=== PATIENT | male | born 1990 | race Caucasian/White ===

== ENCOUNTER 2016-07-02 00:38 | Emergency (ER) | payer OTHER ==
[~2016-07-02] VITALS: Ht 182.9 cm; Wt 77.1 kg
[~2016-07-02 00:38] MED LIST: METRONIDAZOLE500 MG PO
[2016-07-02] MEDS ORDERED: BACTROBAN2% TP (00:58)
--- NOTE | 2016-07-02 01:05 | Emergency Room Report ---
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 N Clinical Suspician of Infection? Y Mental Status: 1 - Regular (Normal Baseline) Sepsis Risk:Possible Sepsis Risk Have you (or family members/close friends) recently traveled outside the [place]? N If Yes, where/when: Have you had exposure to infectious disease within the past month? N TB? Other? Specify: Source patient, RN notes reviewed, family, old records Exam Limitations no limitations Comment infection lt lower leg with reddness and swelling and was at [facility] and did not get his abx Cardiac Chest Pain Chest pain indicative of cardiac No Timing/Duration this evening Severity moderate ALLERGIES Coded Allergies: Penicillins (07/02/16) amoxicillin (07/02/16) Home Medications Reported Medications MUPIROCIN 2% (Bactroban Oint) 1 ESTIVEN TP DAILY History Medical History General CAD? No Angina: No IN: No Hypertension? No Hyperlipidemia? No CHF? No DVT? No PE? No COPD? No Asthma? No Anemia? No GERD? No Gastric ulcers? No GI Bleed? No Hernia? No Thyroid Problems? No Hypothyroidism? No CVA? No Seizures? No Diabetes? No Renal Insuffiency? No End Stage Renal Disease? No UTI? Yes Stones? No GB Disease: No Nephritic Syndrome? No Asplenia? No Hepatitis? No Sickle Cell Disease? No Arthritis? No Migraines? Yes Cataracts? No Glaucoma? No MRSA? No HIV? No TB? No Anxiety? No Depression? No Cancer? No More? No Immunization Hx DT/Tetanus 1-4 Years Ago Surgical Hx Previous Surgery?Y HYPERSPADIA Social History Smoking Hx Smoker: Never Smoker Tobacco: No Alcohol Alcohol: No Drugs none Review of Systems All Other Systems Reviewed and Negative Constitutional denies fever Eyes denies drainage ENT denies: ear pain, epistaxis, throat pain. Respiratory denies cough, denies shortness of breath, denies wheezing Cardiovascular denies chest pain, denies syncope Gastrointestinal denies abdominal pain, denies diarrhea, denies vomiting Genitourinary denies: dysuria, frequency, hesitancy, hematuria. Musculoskeletal denies back pain, denies joint pain, denies joint swelling, denies neck pain Skin see HPI, denies rash, other Psychiatric/Neurological denies headache, denies seizure Physical Exam Vital Signs Vital Signs Date Time Temp Pulse Resp B/P Pulse O2 O2 Flow FiO2 Ox Delivery Rate 07/02 0335 76 18 109/52 99 07/02 0140 18 07/02 0046 100.1 103 20 150/74 96 - WBC >12,000 or <4,000 or 10% bands? 2 or more SIRS Criteria Met? B/P:150/74 MAP:99 Creatinine >2.0? UA output<0.5ml/kg/hr for 2 hrs? Platelet count >100,000? Lactate >2.0mmol/1? INR >1.2 or PTT > than 60 sec? Evidence of Organ Dysfunction? Provider documented clinical suspician of infection? Y Sepsis Criteria Count: 2 Sepsis Risk: Possible Sepsis Risk General Appearance no apparent distress Eye Exam - bilateral eye PERRL, bilateral eye EOMI Ear, Nose, Throat normal ENT inspection Neck supple Respiratory Status No: respiratory distress. 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 No Results/Orders Laboratory Tests 07/02/16 0135: Sodium 140, Potassium 3.9, Chloride 102, Carbon Dioxide 28, BUN 12, Creatinine 1.0, Estimated Creat Clear 124, Estimated GFR (MDRD) 92, Glucose 105, Calcium 8.8, Total Bilirubin 0.5, AST 13 L, ALT 23, Alkaline Phosphatase 90, Total Protein 7.8, Albumin 4.1, Globulin 3.7 H, Albumin/Globulin Ratio 1.1, WBC 12.3 H, RBC 4.74, Hgb 13.8 L, Hct 40.8 L, MCV 86.0, RDW 13.5, Plt Count 270, MPV 8.5, Gran % 80.5 H, Gran # 9.9 H, Lymphocytes % 11.8, Monocytes % 7.1, Eosinophils % 0.3, Basophils % 0.3, Lymphocytes # 1.4, Monocytes # 0.9, Eosinophils # 0.0, Basophils # 0.0, PUBS MCHC 33.9, MCH 29.2 Current Medication Orders Sig/Michelle Start time Last Medication Dose Route Stop Time Status Admin Acetaminophen/ 0 .STK-MED ONE 07/02 0329 DC Codeine Phosphate PO Acetaminophen/ 1 TREVER ONCE ONE 07/02 014 DC 07/02 Codeine Phosphate PO 07/02 145 0331 Sodium Chloride 250 ML .STK-MED ONE 07/02 013 DC IV Vancomycin HCl 0 .STK-MED ONE 07/02 130 DC .ROUTE Vancomycin HCl 0 .STK-MED ONE 07/02 130 DC .ROUTE Vancomycin HCl 1,500 MG ONCE ONE 07/02 129 DCr 07/02 IV 07/02 130 013 Ketorolac 0 .STK-MED ONE 07/02 0128 DC Tromethamine .ROUTE Ketorolac 30 MG ONCE ONE 07/02 011 DC 07/02 Tromethamine IV 07/02 011 0140 Miscellaneous 1 EACH CONSULT PHARMACY 07/02 011 AC Information * 07/02 1307 Sodium Chloride 10 ML PRN PRN 07/02 011 AC IV 07/03 010 Orders Procedure Date/time Status IV SALINE LOCK 07/02 106 Active CULTURE, BLOOD 07/02 106 Active CBC WITH AUTO DIFF 07/02 106 Complete CHEM 12 PROFILE 07/02 106 Complete Departure Departure Time of Disposition 0146 Disposition DC Home or Self Care(routine) Clinical Impression Primary Impression: Cellulitis Qualifiers: Site of cellulitis: extremity Site of cellulitis of extremity: lower extremity Laterality: left Qualified Code: L03.116 - Cellulitis of left lower limb Condition STABLE Patient Instructions DI for Methicillin-Resistant Staph Infection (MRSA) Additional Instructions keep clean and use meds and see pcp this week Discharge Counseling Counseled pt/family regarding diagnosis, test results, medications/RX, follow up needs ED Critical Care Critical Care No Comments cellulitis lt lower ext at 0810
--- NOTE | 2016-07-02 01:05 | Emergency Room Report ---
History of Present Illness Time Seen by MD Bauman Presenting Problem in Triage Pt arrived:Wheelchair Presenting Problem:LOWER LEFT LEG "SPIDER BITE" Onset of symptoms date/time:07/01/16 or onset unknown for: Treatment Prior to Arrival: WENT TO [facility] TODAY - THEY GAVE HIM 3 PRESCRIPTIONS THAT ARE NOT FILLED, 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 N Clinical Suspician of Infection? Y Mental Status: 1 - Regular (Normal Baseline) Sepsis Risk:Possible Sepsis Risk Have you (or family members/close friends) recently traveled outside the [place]? N If Yes, where/when: Have you had exposure to infectious disease within the past month? N TB? Other? Specify: Source patient, RN notes reviewed, family, old records Exam Limitations no limitations Comment infection lt lower leg with reddness and swelling and was at [facility] and did not get his abx Cardiac Chest Pain Chest pain indicative of cardiac No Timing/Duration this evening Severity moderate ALLERGIES Coded Allergies: Penicillins (07/02/16) amoxicillin (07/02/16) Home Medications Reported Medications MUPIROCIN 2% (Bactroban Oint) 1 ESTIVEN TP DAILY History Medical History General CAD? No Angina: No SD: No Hypertension? No Hyperlipidemia? No CHF? No DVT? No PE? No COPD? No Asthma? No Anemia? No GERD? No Gastric ulcers? No GI Bleed? No Hernia? No Thyroid Problems? No Hypothyroidism? No CVA? No Seizures? No Diabetes? No Renal Insuffiency? No End Stage Renal Disease? No UTI? Yes Stones? No GB Disease: No Nephritic Syndrome? No Asplenia? No Hepatitis? No Sickle Cell Disease? No Arthritis? No Migraines? Yes Cataracts? No Glaucoma? No MRSA? No HIV? No TB? No Anxiety? No Depression? No Cancer? No More? No Immunization Hx DT/Tetanus 1-4 Years Ago Surgical Hx Previous Surgery?Y HYPERSPADIA Social History Smoking Hx Smoker: Never Smoker Tobacco: No Alcohol Alcohol: No Drugs none Review of Systems All Other Systems Reviewed and Negative Constitutional denies fever Eyes denies drainage ENT denies: ear pain, epistaxis, throat pain. Respiratory denies cough, denies shortness of breath, denies wheezing Cardiovascular denies chest pain, denies syncope Gastrointestinal denies abdominal pain, denies diarrhea, denies vomiting Genitourinary denies: dysuria, frequency, hesitancy, hematuria. Musculoskeletal denies back pain, denies joint pain, denies joint swelling, denies neck pain Skin see HPI, denies rash, other Psychiatric/Neurological denies headache, denies seizure Physical Exam Vital Signs Vital Signs Date Time Temp Pulse Resp B/P Pulse O2 O2 Flow FiO2 Ox Delivery Rate 07/02 0335 76 18 109/52 99 07/02 0140 18 07/02 0046 100.1 103 20 150/74 96 - WBC >12,000 or <4,000 or 10% bands? 2 or more SIRS Criteria Met? B/P:150/74 MAP:99 Creatinine >2.0? UA output<0.5ml/kg/hr for 2 hrs? Platelet count >100,000? Lactate >2.0mmol/1? INR >1.2 or PTT > than 60 sec? Evidence of Organ Dysfunction? Provider documented clinical suspician of infection? Y Sepsis Criteria Count: 2 Sepsis Risk: Possible Sepsis Risk General Appearance no apparent distress Eye Exam - bilateral eye PERRL, bilateral eye EOMI Ear, Nose, Throat normal ENT inspection Neck supple Respiratory Status No: respiratory distress. 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 No Results/Orders Laboratory Tests 07/02/16 0135: Sodium 140, Potassium 3.9, Chloride 102, Carbon Dioxide 28, BUN 12, Creatinine 1.0, Estimated Creat Clear 124, Estimated GFR (MDRD) 92, Glucose 105, Calcium 8.8, Total Bilirubin 0.5, AST 13 L, ALT 23, Alkaline Phosphatase 90, Total Protein 7.8, Albumin 4.1, Globulin 3.7 H, Albumin/Globulin Ratio 1.1, WBC 12.3 H, RBC 4.74, Hgb 13.8 L, Hct 40.8 L, MCV 86.0, RDW 13.5, Plt Count 270, MPV 8.5, Gran % 80.5 H, Gran # 9.9 H, Lymphocytes % 11.8, Monocytes % 7.1, Eosinophils % 0.3, Basophils % 0.3, Lymphocytes # 1.4, Monocytes # 0.9, Eosinophils # 0.0, Basophils # 0.0, PUBS MCHC 33.9, MCH 29.2 Current Medication Orders Sig/Michelle Start time Last Medication Dose Route Stop Time Status Admin Acetaminophen/ 0 .STK-MED ONE 07/02 0329 DC Codeine Phosphate PO Acetaminophen/ 1 TREVER ONCE ONE 07/02 014 DC 07/02 Codeine Phosphate PO 07/02 145 0331 Sodium Chloride 250 ML .STK-MED ONE 07/02 013 DC IV Vancomycin HCl 0 .STK-MED ONE 07/02 130 DC .ROUTE Vancomycin HCl 0 .STK-MED ONE 07/02 130 DC .ROUTE Vancomycin HCl 1,500 MG ONCE ONE 07/02 129 DCr 07/02 IV 07/02 130 013 Ketorolac 0 .STK-MED ONE 07/02 0128 DC Tromethamine .ROUTE Ketorolac 30 MG ONCE ONE 07/02 011 DC 07/02 Tromethamine IV 07/02 011 0140 Miscellaneous 1 EACH CONSULT PHARMACY 07/02 011 AC Information * 07/02 1307 Sodium Chloride 10 ML PRN PRN 07/02 011 AC IV 07/03 010 Orders Procedure Date/time Status IV SALINE LOCK 07/02 106 Active CULTURE, BLOOD 07/02 106 Active CBC WITH AUTO DIFF 07/02 106 Complete CHEM 12 PROFILE 07/02 106 Complete Departure Departure Time of Disposition 0146 Disposition DC Home or Self Care(routine) Clinical Impression Primary Impression: Cellulitis Qualifiers: Site of cellulitis: extremity Site of cellulitis of extremity: lower extremity Laterality: left Qualified Code: L03.116 - Cellulitis of left lower limb Condition STABLE Patient Instructions DI for Methicillin-Resistant Staph Infection (MRSA) Additional Instructions keep clean and use meds and see pcp this week Discharge Counseling Counseled pt/family regarding diagnosis, test results, medications/RX, follow up needs ED Critical Care Critical Care No Comments cellulitis [place] ext at 0810
[2016-07-02 01:49] LABS: HEMOGLOBIN 13.8 g/dL (14.1-18.0); LYMPH # 1.4 K/mm3 (0.7-4.5); LYMPH % 11.8 % (10-50)
[2016-07-02 08:28] VITALS: BP 109/52
== END 2016-07-02 03:49 | disposition home or self-care (01) ==
LOC: ER 00:38
PROVIDERS: Emergency Medicine
DX: L03.116 Cellulitis of left lower limb (principal)
CPT/HCPCS: J3370